=== PATIENT | male | born 1985 | race Caucasian/White ===

== ENCOUNTER 2019-07-17 19:00 | Emergency (ER) | payer SELFPAY ==
[2019-07-17] VITALS (18 sets, daily range): BP systolic 141–166; BP diastolic 73–98; PULSE 68–85; RESP 0–18; TEMP 36.3; O2SAT 98–100
--- NOTE | ~2019-07-17 | CT_ITS ---
EXAMINATION: CT brain wo con INDICATION: Sensory changes of the left side of the face COMPARISON: None TECHNIQUE: Standard unenhanced head CT. The dose-length product (DLP) was 681.00 mGy-cm. The mA was a djusted according to patient size. Iterative reconstruction technique was employed. FINDINGS: There is no intracranial hemorrhage, acute infarction, or abnormal mass lesion. The ventric les are normal. There is no abnormal mass effect or midline shift. The ross-white matter differentiat ion is normal. The basal cisterns are patent. The orbits are normal. The paranasal sinuses, mastoids and calvarium are normal. IMPRESSION: 1. No acute intracranial abnormality. Reviewed, dictated and finalized at location A.
--- NOTE | 2019-07-17 19:24 | ECG_ITS ---
Measurements Intervals [place] Rate: 66 P: 47 TN: 176 QRS: 45 QRSD: 93 T: 34 QT: 401 QTc: 421 Interpretive Statements SINUS RHYTHM DELAYED PRECORDIAL R/S TRANSITION BORDERLINE ECG Electronically Signed On 07-18-2019 8:37:02 CDT by Teddy Rosa D.O.
--- NOTE | 2019-07-17 20:00 | ED.GENADULT ---
HPI - General Adult General Chief complaint: Unspecified Stated complaint: left side weakness, nausea Time Seen by Provider: 07/17/19 19:32 History of Present Illness HPI narrative: 33-year-old male presents emergency department with multiple vague complaints. He reports feeling fatigued since yesterday with changes in sensation in the left side of his face. He reports feeling unsteady or lightheaded almost like an inner ear thing . He denies fever but has had some chills. He denies cough or chest pain. He reports intermittent nausea and vomiting last night and this morning that is now resolved. Denies abdominal pain. Pt is from [place], [place] but travels frequency for work. He reports recent travel from [place], [place] via [employer] bus. He has not tried any treatments for any of these symtpoms at home. Related Data Allergies Allergy/AdvReac Type Severity Reaction Status Date / Time No Known Allergies Allergy Unverified 07/31/17 03:55 Review of Systems Review of Systems: Narrative: CONSTITUTIONAL: Denies fever. Reports intermittent chill.s EYES: Denies visual changes, redness, or discharge. ENT: Denies rhinorrhea, congestion, sore throat, or otalgia. CARDIOVASCULAR: Denies chest pain, palpitations, or edema. Reports feeling in his chest like he needs to cough. RESPIRATORY: Denies cough or dyspnea. GASTROINTESTINAL: Denies abdominal pain. Reports episode of nausea and vomiting last night and this morning. GENITOURINARY: Denies dysuria or hematuria. SKIN: Denies rash or itching. MUSCULOSKELETAL: Denies back pain, joint pain, or myalgias. NEUROLOGIC: Denies headache, numbness, or weakness. Reports feeling off balance. Reports change in sensation to the left side of the face. PSYCHIATRIC: Denies anxiety or depression.Has been experiencing a lot of stress lately. [facility] Past Medical History Medical History (Updated 07/17/19 @ 21:46 by SONIA Echeverria) Hx of hypoglycemia Surgical History Surgical History (Updated 07/17/19 @ 21:47 by SONIA Echeverria) Hx of cholecystectomy Exam Narrative: Exam Narrative: GENERAL: Well-appearing, well-nourished, and in no acute distress. HEAD: Normocephalic, atraumatic. EYES: PERRL and EOMI. sclera anicteric ENT: Nares clear, no rhinorrhea or epistaxis. Mucous membranes moist. Bilateral TMs intact without erythema, bulging or retraction. Post pharynx without erythema or exudates. NECK: Supple. No cervical lymphadenopathy. CHEST: Clear to auscultation. No respiratory distress. HEART: Regular rate and rhythm. No murmur heard. Normal peripheral pulses. ABDOMEN: Soft, nontender, nondistended, normal active bowel sounds. EXTREMITIES: Normal range of motion. No edema. SKIN: Warm, dry, no rash. NEURO: No focal deficits. Alert and oriented x3. Sensation decreased with light touch to left side of face. CN 2-12 intact. STEVE intact. PSYCH: Normal mood and affect. Course Course Emergency Course: Discussed CT and EKG findings with patient. Pt states he has had a lot going on personally the past few days.States he is feeling better since his arrival to the ED. He is set to travel for work to [place] tomorrow morning. Vital Signs Vital signs: Vital Signs Temperature 36.3 C L 07/17/19 19:04 Pulse Rate 72 07/17/19 19:04 Respiratory Rate 18 07/17/19 19:04 Blood Pressure 162/92 H 07/17/19 19:04 Pulse Oximetry 100 07/17/19 19:04 Temperature 36.3 C L 07/17/19 19:04 Pulse Rate 72 07/17/19 19:04 Respiratory Rate 18 07/17/19 19:04 Blood Pressure 162/92 H 07/17/19 19:04 Pulse Oximetry 100 07/17/19 19:04 Medical Decision Making [facility] Narrative Medical decision making narrative: PT presented to ED with multiple complaints that started yesterday. He reports he has been under a lot of stress the past few days in his personal life and has been traveling with his work across the . His complaints are vague and mostly resolved. CT brain was performed since patient re
[2019-07-17 21:24] LABS: Glucose Point of Care 78 (65-105)
== END 2019-07-17 21:48 | disposition home or self-care (01) ==
DX: R20.0 Anesthesia of skin (principal)
CPT/HCPCS: 70450; 93005; 99284

== ENCOUNTER 2023-12-01 00:37 | Emergency (ER) | payer OTHER, SELFPAY ==
--- NOTE | ~2023-12-01 | XR_ITS ---
Left ankle Technique: AP, oblique, and lateral views were obtained. Clinical History: Pain Findings: No acute fracture or dislocation is seen. Osseous alignment is anatomic. Ankle mortise and other visualized joint spaces are preserved. Soft tissues are otherwise unremarkable. Impression: Unremarkable left ankle. Reviewed, dictated and finalized at location . Impression: Unremarkable left ankle.
[2023-12-01 00:39] VITALS: BP 130/51; PULSE 95; RESP 18; TEMP 36.6; O2SAT 100
[2023-12-01 04:39] VITALS: BP 146/98; PULSE 90; RESP 20; O2SAT 98
--- NOTE | 2023-12-01 05:02 | ED.GENADULT ---
HPI - General Adult General Chief complaint: Extremity Problem,Nontraumatic Stated complaint: left ankle pain Time Seen by Provider: 12/01/23 04:44 History of Present Illness HPI narrative: Patient 38-year-old gentleman who presents emergency department chief complaint of left ankle pain. Patient reports that he recently did injure his lower extremities reports CV step-down felt a popping sensation in his left ankle patient reports that he has pain with any kind of pressure on it. Related Data Allergies Allergy/AdvReac Type Severity Reaction Status Date / Time No Known Allergies Allergy Verified 12/01/23 04:40 Review of Systems Review of Systems: A 10 system review of systems was completed on the patient and is negative except for what is stated in the HPI. Nursing and ancillary documentation was reviewed. PMFSH Past Medical History Medical History Hx of hypoglycemia Surgical History Surgical History Hx of cholecystectomy Exam Narrative: GENERAL: Well-appearing, well-nourished, and in no acute distress. HEAD: Normocephalic, atraumatic. EYES: PERRLA and EOMI. ENT: Nares clear, no rhinorrhea or epistaxis. Mucous membranes moist. NECK: Supple. CHEST: Clear to auscultation. No respiratory distress. HEART: Regular rate and rhythm. No murmur heard. Normal peripheral pulses. ABDOMEN: Soft, nontender, nondistended, normal active bowel sounds. EXTREMITIES: Normal range of motion in all extremities except left lower extremity. There is tenderness to palpation of the medial malleolus and posterior aspect of the left ankle. There is a negative Doty test. No edema. SKIN: Warm, dry, no rash. NEURO: No focal deficits. Alert and oriented x3. PSYCH: Normal mood and affect. Course Vital Signs Vital signs: Vital Signs Temperature 36.6 C 12/01/23 00:39 Pulse Rate 95 12/01/23 00:39 Respiratory Rate 18 12/01/23 00:39 Blood Pressure 130/51 L 12/01/23 00:39 Pulse Oximetry 100 12/01/23 00:39 Oxygen Delivery Room Air 12/01/23 00:39 Temperature 36.6 C 12/01/23 00:39 Pulse Rate 90 12/01/23 04:39 Respiratory Rate 20 12/01/23 04:39 Blood Pressure 146/98 H 12/01/23 04:39 Pulse Oximetry 98 12/01/23 04:39 Oxygen Delivery Room Air 12/01/23 00:39 Medical Decision Making MDM Narrative Medical decision making narrative: Differential diagnosis includes fracture, sprain X-ray showed no evidence of fracture The patient be placed in Ivan wrap and also placed on crutches Patient discharged home prescription for anti-inflammatory should follow-up with his primary care provider rest elevate nice Vital Signs Vital Signs: Vital Signs Temperature 36.6 C 12/01/23 00:39 Pulse Rate 95 12/01/23 00:39 Respiratory Rate 18 12/01/23 00:39 Blood Pressure 130/51 L 12/01/23 00:39 Pulse Oximetry 100 12/01/23 00:39 Oxygen Delivery Room Air 12/01/23 00:39 Temperature 36.6 C 12/01/23 00:39 Pulse Rate 90 12/01/23 04:39 Respiratory Rate 20 12/01/23 04:39 Blood Pressure 146/98 H 12/01/23 04:39 Pulse Oximetry 98 12/01/23 04:39 Oxygen Delivery Room Air 12/01/23 00:39 Discharge Plan Discharge Clinical Impression: Left ankle sprain Patient Disposition: Home, Self-Care Condition: Stable Instructions: Antibiotic Form, Ankle Sprain (ED), Crutch Instructions (ED) Additional Instructions: Please rest elevate nice the extremity. He may use crutches weight-bearing as tolerated please follow-up with your primary care provider Prescriptions: New diclofenac potassium 50 mg tablet 50 mg PO TID PRN (Reason: pain) Qty: 21 0RF Follow-up/Referrals: UNKNOWN,DOCTOR [Primary Care Provider] - Time of Disposition: 05:14
[2023-12-01] MEDS: IBUPROFEN 400 MG TABLET 800 MG PO (05:24)
== END 2023-12-01 05:45 | disposition home or self-care (01) ==
LOC: ANHED 05:15
PROVIDERS: Emergency Provider Emergency Medicine; PCP Family Medicine
DX: S93.402A Sprain of unspecified ligament of left ankle, initial encounter (principal); Z90.49 Acquired absence of other specified parts of digestive tract; X50.9XXA Other and unspecified overexertion or strenuous movements or postures, initial encounter
CPT/HCPCS: 73610; 99283; A9270